=== PATIENT | female | born 1995 | race American Indian/Alaskan Native ===

== ENCOUNTER 2020-06-08 02:11 | Emergency (ER) | payer SELFPAY ==
[2020-06-08 03:49] VITALS: BP 122/74
[2020-06-08 04:46] LABS: Bacteria,Urine 2+ /HPF (Negative); Bilirubin,Urine NEG (Negative); Blood,Urine LG (Negative); Color,Urine Yellow (Yellow); Mucus,Urine 1+ /HPF; Urobilinogen,Urine < 2.0 mg/dL (<2.0)
[2020-06-08 04:47] LABS: RBC,Urine > 182.0 /HPF (0.0-6.0); WBC,Urine > 182.0 /HPF (0.0-6.0)
[2020-06-08 04:48] LABS: HCG Qualitative,Urine Negative (Negative)
[2020-06-08] MEDS ORDERED: ONDANSETRON 4 MG ODT TAB PO ONE (04:50)
[2020-06-08] MEDS ORDERED: LIDOCAINE-MPF (1%) 10 MG/1 ML VIAL 5 ML INFILTRATI ONE (04:50)
[2020-06-08] MEDS ORDERED: ACETAMINOPHEN 500 MG TAB PO ONE (04:50)
[2020-06-08] MEDS ORDERED: IBUPROFEN 600 MG TAB PO ONE (04:50)
--- NOTE | 2020-06-08 04:57 | Emergency Department Report ---
ED Female HPI - General Chief complaint: Abdominal Pain Stated complaint: BURNING URINATION Source: patient Mode of arrival: Ambulatory Limitations: No Limitations - History of Present Illness Initial comments: Patient is a nulliparous 25-year-old -[place] female with no past medical history presents to the ED with complaint of acute onset persistent dysuria, urinary frequency and urgency, hematuria, low back pain and suprapubic pain for the last 12 hours. Patient states that she has been taking cyos-jnp-lqllkic medications with no relief. Patient states that in the last 4 hours, the pain has worsened such that she was unable to sleep. Patient denies fever, chills, dizziness, vomiting, diarrhea, cough, sore throat, vaginal discharge, dyspareunia, heavy lifting or fall, numbness and tingling or weakness of lower extremities bilaterally. MD Complaint: dysuria, pelvic pain, other (Urinary urgency and frequency; hematuria) -: Sudden, hour(s) (12) Location: suprapubic, other (Vaginal) Radiation: non-radiating Severity: severe Severity scale (0 -10): 7 Quality: sharp, burning Consistency: constant Improves with: none Worsens with: urination Are you Now?: No Associated Symptoms: denies other symptoms, abdominal pain (Suprapubic), nausea/vomiting, dysuria, hematuria. denies: vaginal discharge, vaginal bleeding, fever/chills, headaches, loss of appetite, rash, seizure, shortness of breath, syncope, weakness, other - Related Data Sexually active: No : 0 Para: 0 A: 0 Previous Rx's Medication Instructions Recorded Last Taken Type Ibuprofen [Motrin] 800 mg PO Q8HR PRN #30 tablet 06/08/20 Unknown Rx Ondansetron [Zofran Odt] 4 mg PO Q6HR PRN #20 tab.rapdis 06/08/20 Unknown Rx cephALEXin [Keflex] 500 mg PO Q6HR #40 capsule 06/08/20 Unknown Rx Allergies Allergy/AdvReac Type Severity Reaction Status Date / Time No Known Allergies Allergy Unverified 06/08/20 03:48 ED Review of Systems ROS: Stated complaint: BURNING URINATION Other details as noted in HPI Constitutional: denies: chills, fever Eyes: denies: eye pain, eye discharge, vision change ENT: denies: ear pain, throat pain Respiratory: denies: cough, shortness of breath, wheezing Cardiovascular: denies: chest pain, palpitations Endocrine: no symptoms reported Gastrointestinal: abdominal pain (Suprapubic), nausea. denies: diarrhea Genitourinary: urgency, dysuria, frequency, hematuria. denies: discharge Musculoskeletal: denies: back pain, joint swelling, arthralgia Skin: denies: rash, lesions Neurological: denies: headache, weakness, paresthesias Psychiatric: denies: anxiety, depression Hematological/Lymphatic: denies: easy bleeding, easy bruising ED Past Medical Hx - Past Medical History Previous Medical History?: No - Surgical History Past Surgical History?: No - Social History Smoking Status: Never Smoker Substance Use Type: None - Medications Home Medications: Home Medications Medication Instructions Recorded Confirmed Last Taken Type Ibuprofen [Motrin] 800 mg PO Q8HR PRN #30 tablet 06/08/20 Unknown Rx Ondansetron [Zofran Odt] 4 mg PO Q6HR PRN #20 tab.rapdis 06/08/20 Unknown Rx cephALEXin [Keflex] 500 mg PO Q6HR #40 capsule 06/08/20 Unknown Rx ED Physical Exam - General Limitations: No Limitations General appearance: alert, in no apparent distress - Head Head exam: Present: atraumatic, normocephalic, normal inspection - Eye Eye exam: Present: normal appearance, PERRL, EOMI Pupils: Present: normal accommodation - ENT ENT exam: Present: normal exam, normal orophraynx, mucous membranes moist, TM's normal bilaterally, normal external ear exam - Neck Neck exam: Present: normal inspection, full ROM - Respiratory Respiratory exam: Present: normal lung sounds bilaterally. Absent: respiratory distress, wheezes, rales, rhonchi, stridor, chest wall tenderness, accessory muscle use, decreased breath sounds, prolonged expiratory - Cardiovascular Cardiovascular Exam: Present: regular rate, normal rhythm, normal heart sounds. Absent: systolic murmur, diastolic murmur, rubs, gallop - GI/Abdominal GI/Abdominal exam: Present: soft, normal bowel sounds. Absent: tenderness, guarding, rebound, hyperactive bowel sounds, hypoactive bowel sounds, organomegaly - Bi-manual exam: Present: other (Pelvic exam deferred) - Extremities Exam Extremities exam: Present: normal inspection, full ROM, normal capillary refill - Back Exam Back exam: Present: normal inspection, full ROM. Absent: tenderness, CVA tenderness (R), muscle spasm, paraspinal tenderness, vertebral tenderness - Neurological Exam Neurological exam: Present: alert, oriented X3, CN II-XII intact, normal gait, reflexes normal - Psychiatric Psychiatric exam: Present: normal affect, normal mood - Skin Skin exam: Present: warm, dry, intact, normal color. Absent: rash ED Course Vital Signs 06/08/20 03:45 Temperature 98.5 F Pulse Rate 82 Respiratory 18 Rate Blood Pressure 122/74 O2 Sat by Pulse 98 Oximetry ED Medical Decision Making - Medical Decision Making This is a nulliparous 25-year-old -[place] female with no past medical history presents to the ED with complaint of acute onset persistent dysuria, urinary frequency and urgency, hematuria, low back pain and suprapubic pain for the last 12 hours. Patient states that she has been taking [id number] medications with no relief. Patient states that in the last 4 hours, the pain has worsened such that she was unable to sleep. In the ED, patient is alert and oriented x3 and is not in distress. Patient however appears uncomfortable. Patient was treated in the ED for pain and also given antiemetics. Urinalysis shows significant urinary tract infection with hematuria. Patient was treated in the ED with Rocephin 1 g intramuscular injection. On reevaluation, patient is pain is well controlled with medications. Patient will discharge home on medications for pain and as well as antiemetics and oral antibiotics. Patient was advised to follow-up with her primary care physician in 7 to 10 days for reevaluation or return to the ED immediately if symptoms get worse. - Differential Diagnosis UTI; cystitis; PID; kidney stones; ; ovarian cyst Critical care attestation.: If time is entered above; I have spent that time in minutes in the direct care of this critically ill patient, excluding procedure time. ED Disposition Clinical Impression: Acute urinary tract infection, Acute suprapubic pain, Acute cystitis with hematuria Disposition: TO HOME OR SELFCARE Is pt being admited?: No Does the pt Need Aspirin: No Condition: Stable Instructions: Abdominal Pain (ED), Pelvic Pain, Female, [id number], Abdominal Pain, Adult, [id number], Urinary Tract Infection, Adult, [id number] Additional Instructions: Urinalysis tests show significant urinary tract infection with hematuria. Therefore take medications with food, drink plenty of fluids and follow-up with your primary care physician in 7 to 10 days for reevaluation. Return to the ED immediately if symptoms get worse. Prescriptions: cephALEXin [Keflex] 500 mg PO Q6HR #40 capsule Ibuprofen [Motrin] 800 mg PO Q8HR PRN #30 tablet PRN Reason: Pain , Severe (7-10) Ondansetron [Zofran Odt] 4 mg PO Q6HR PRN #20 tab.rapdis PRN Reason: Nausea Referrals: [facility] [Provider Group] - 3-5 Days Time of Disposition: 04:56 Print Language: CITIZEN OF [place]
== END 2020-06-08 05:43 | disposition home or self-care (01) ==
LOC: ED 02:11
DX: N39.0 Urinary tract infection, site not specified (principal); R10.2 Pelvic and perineal pain; Z79.899 Other long term (current) drug therapy
CPT/HCPCS: 81001; 81025; 96372; 99283; J0696; Q0162